=== PATIENT | male | born 1975 | race Caucasian/White ===

== ENCOUNTER 2021-10-30 18:13 | Emergency (ER) | payer OTHER ==
[~2021-10-30] VITALS: Ht 170.2 cm; Wt 74.8 kg
[2021-10-30 18:45] VITALS: BP 145/88
[2021-10-30] MEDS ORDERED: CEFTRIAXONE 1 G in IV DEXTROSE 5% 50 ML IV ONE (18:45)
[2021-10-30] MEDS ORDERED: ASPIRIN 81 MG TAB.CHEW PO ONE (18:45)
[2021-10-30] MEDS ORDERED: NITROGLYCERIN OINT 1 GM PACKET TP ONE ×2 (18:45→21:30)
[2021-10-30] MEDS ORDERED: SULFAMETH/TRIMETH 800/160 MG TABLET PO ONE (18:45)
[2021-10-30] MEDS ORDERED: FLUCONAZOLE 100 MG TABLET PO ONE (18:45)
[2021-10-30 19:26] LABS: ABG BASE EXCESS 2.9 mmol/L; ABG HCO3 26.1 mmol/L; ABG PCO2 35.8 mmHg (35.0-45.0); ABG PH 7.481 (7.350-7.450); ABG PO2 86.6 mmHg (75.0-100.0); ABG SITE LEFT RADIAL; ABG TOTAL HEMOGLOBIN 14.3 G/dL (13.5-18.0); COHb 1.8 % (0.5-1.5); MetHb 0.1 % (0.0-1.5); O2Hb 95.2 % (94.0-97.0); VENT MODE ROOM AIR
--- NOTE | 2021-10-30 19:53 | NUR ---
pt a/o able to follow commands.
[2021-10-30 20:17] LABS: HEMATOCRIT 40.1 % (36.7-47.1); MEAN CORPUSCULAR HEMOGLOBIN 29.8 uug (23.8-33.4); MEAN CORPUSCULAR VOLUME 89.7 fL (73.0-96.2); PLATELET COUNT (AUTO) 285 K/uL (152-348)
[2021-10-30 20:26] LABS: CREATININE 1.6 mg/dL (0.6-1.3); POTASSIUM 3.5 mmol/L (3.5-5.1)
[2021-10-30 20:39] LABS: BILIRUBIN,DIRECT 0.9 mg/dL (0.0-0.2); BILIRUBIN,TOTAL 2.5 mg/dL (0.2-1.0); TOTAL PROTEIN, SERUM 7.1 g/dL (6.4-8.2)
[2021-10-30] MEDS ORDERED: ASPIRIN 81 MG TAB.CHEW ONE (21:28)
[2021-10-30] MEDS ORDERED: FLUCONAZOLE 100 MG TABLET ONE (21:30)
[2021-10-30] MEDS ORDERED: HYDROCODONE/APAP 10-325 MG TABLET PO ONE (21:30)
[2021-10-30] MEDS ORDERED: SULFAMETH/TRIMETH 800/160 MG TABLET ONE (21:30)
[2021-10-30] MEDS ORDERED: HYDROCODONE/APAP 10-325 MG TABLET ONE (21:30)
[2021-10-30] MEDS ORDERED: ONDANSETRON ODT 4 MG TAB.RAPDIS ONE (21:30)
[2021-10-30] MEDS ORDERED: POTASSIUM CHLORIDE 20 MEQ TAB.PRT.SR PO ONE (21:30)
[2021-10-30] MEDS ORDERED: ONDANSETRON ODT 4 MG TAB.RAPDIS SL ONE (21:30)
[2021-10-30] MEDS ORDERED: FUROSEMIDE 40 MG/4 ML VIAL IV ONE (21:30)
[2021-10-30] MEDS ORDERED: CEFTRIAXONE /D5W 50ML IVPB **ER PYXIS IV ONE (21:31)
--- NOTE | 2021-10-30 21:43 | NUR ---
Called Dr. Ludwig of [facility], . Dr. West speaking with Dr. Ludwig.
[2021-10-30] MEDS ORDERED: FUROSEMIDE 40 MG/4 ML VIAL ONE (21:44)
[2021-10-30] MEDS ORDERED: POTASSIUM CHLORIDE 20 MEQ TAB.PRT.SR ONE (21:44)
[2021-10-30] MEDS ORDERED: IV NORMAL SALINE 500 ML BAG IV ONE (22:00)
[2021-10-30] MEDS ORDERED: ENOXAPARIN SODIUM 80 MG/0.8 ML DISP.SYRIN SQ ONE ×2 (22:30→22:57)
--- NOTE | 2021-10-30 22:36 | NUR ---
Pt accepted by Dr. Ludwig of [facility].
--- NOTE | 2021-10-30 23:02 | NUR ---
Resting in bed. NAD. VSS. Needs attended to.
--- NOTE | 2021-10-31 00:14 | NUR ---
Received call back from Kevin Lagunas [facility], with transfer information, Patient accepted by Dr. Ludwig, going to the Emergency Room, number to report is .
--- NOTE | 2021-10-31 01:00 | NUR ---
No available transport till 929 - [facility] will be picking patient up
--- NOTE | 2021-10-31 02:00 | NUR ---
Pt resting in bed. NAD noted. Hemodynmacially stable. Needs attended to.
--- NOTE | 2021-10-31 04:11 | NUR ---
Pt resting in bed. NAD noted. Hemodynmacially stable. Needs attended to.
--- NOTE | 2021-10-31 10:36 | NUR ---
[facility] CALLED AMBULANCE RESCHEDULE FOR 1 PM IMPLEMENTATION COORDINATOR. SPOKE WITH DOGULAS
--- NOTE | 2021-10-31 11:57 | NUR ---
REPORT GIVEN TO AMBULANCE EMT DOMINGO LOPEZ.
== END 2021-10-31 12:05 | disposition short-term general hospital (02) ==
LOC: ER 18:16
DX: I50.9 Heart failure, unspecified (principal); Z95.810 Presence of automatic (implantable) cardiac defibrillator; R77.8 Other specified abnormalities of plasma proteins; N48.22 Cellulitis of corpus cavernosum and penis; B37.49 Other urogenital candidiasis; F17.210 Nicotine dependence, cigarettes, uncomplicated; Z20.822 Contact with and (suspected) exposure to COVID-19
CPT/HCPCS: 36415; 36600; 71045; 80048; 80076; 83880; 84484 ×2; 85025; 85379; 85730; 87426; 93005; 96361; 96365; 96372; 96375; 99285; 99406; J0696; J1650; J1940; 70030-TC; A4663; Q0162